=== PATIENT | female | born 2000 | race Two or more races ===

== ENCOUNTER 2022-08-06 20:13 | Emergency (ER) | payer OTHER ==
[~2022-08-06] VITALS: Ht 160 cm; Wt 49.9 kg
== END 2022-08-07 06:06 | disposition home or self-care (01) ==
LOC: ER 20:13
DX: O21.1 Hyperemesis gravidarum with metabolic disturbance (principal); Z3A.09 9 weeks gestation of pregnancy

== ENCOUNTER 2022-08-30 23:19 | Emergency (ER) | payer OTHER ==
[~2022-08-30] VITALS: Ht 160 cm; Wt 49.9 kg
[2022-08-30] MEDS ORDERED: PRENA1 TRUE CO1 EACH PO (23:34)
[2022-08-31] MEDS ORDERED: CEPHALEXIN500 MG PO (04:55)
== END 2022-08-31 05:01 ==
LOC: ER 23:19
DX: N39.0 Urinary tract infection, site not specified (principal); R50.9 Fever, unspecified; R53.81 Other malaise; Z3A.13 13 weeks gestation of pregnancy; Z20.822 Contact with and (suspected) exposure to COVID-19

== ENCOUNTER 2022-09-10 20:00 | Emergency (ER) | payer OTHER ==
[~2022-09-10] VITALS: Ht 160 cm; Wt 49.9 kg
[~2022-09-10 20:00] MED LIST: CEPHALEXIN500 MG PO; PRENA1 TRUE CO1 EACH PO
== END 2022-09-10 22:51 | disposition home or self-care (01) ==
LOC: ER 20:00
DX: R30.0 Dysuria (principal); Z3A.14 14 weeks gestation of pregnancy

== ENCOUNTER 2022-10-15 13:33 | Emergency (ER) | payer OTHER ==
[~2022-10-15] VITALS: Ht 160 cm; Wt 53.5 kg
== END 2022-10-15 14:27 | disposition home or self-care (01) ==
LOC: ER 13:33
DX: J06.9 Acute upper respiratory infection, unspecified (principal); R05.9 Cough, unspecified; Z3A.14 14 weeks gestation of pregnancy

== ENCOUNTER 2023-01-22 07:56 | Outpatient (CLI) | payer OTHER ==
[2023-01-22 09:04] LABS: HEMATOCRIT 30.1 % (36.0-45.00); HEMOGLOBIN 10.3 g/dL (12.0-15.00); MEAN CELL VOLUME 84.8 fL (80.00-100.00); MEAN CORPUSCULAR HGB CONC 34.2 g/dl (32.0-36.0); PLATELET COUNT 266 K/uL (150-450); RED BLOOD COUNT 3.55 M/uL (4.00-6.00); RED CELL DISTRIBUTION WIDTH 14.4 % (11.5-14.5)
[2023-01-22 09:33] LABS: ALBUMIN 2.6 gm/dL (3.4-5.0); BILIRUBIN TOTAL 0.3 mg/dL (0.3-1.2); CALCIUM 8.5 mg/dL (8.5-10.1); CREATININE SERUM 0.4 mg/dL (0.55-1.02); GFR 199.59; GLOBULINA 3.6 G/DL (2.4-3.5); POTASSIUM 4.21 mEq/L (3.5-5.1); TOTAL PROTEIN 6.2 gm/dL (6.4-8.2)
[2023-01-22 09:35] LABS: PH,URINE 5.5 (5.0-8.0); URINE APPEARANCE Clear; URINE BILIRRUBIN Negative (NEGATIVE); URINE BLOOD Negative; URINE COLOR Dark Yellow; URINE GLUCOSE Negative (NEGATIVE); URINE LEUKOCYTE Moderate; URINE NITRATE Negative; URINE PROTEIN Negative (NEGATIVE)
[2023-01-22 09:40] LABS: URINE RBC 4.7 uL (0.0-20.8); URINE WBC 118.8 uL (0.0-23.2)
[2023-01-22 10:13] LABS: URINE CRYSTALS FEW /HPF; URINE MUCUS SCANT; URINE YEAST FEW /hpf
[2023-01-23] MEDS ORDERED: CEFUROXIME500 MG PO (08:49)
== END 2023-01-23 09:53 | disposition home or self-care (01) ==
LOC: OBS/DEL 07:56
PROVIDERS: ATTEND Specialist
DX: O23.43 Unspecified infection of urinary tract in pregnancy, third trimester (principal); N39.0 Urinary tract infection, site not specified; Z3A.34 34 weeks gestation of pregnancy

== ENCOUNTER 2023-02-19 13:30 | Inpatient (IN) | payer OTHER ==
[~2023-02-19] VITALS: Ht 157.5 cm; Wt 2.7 kg
[~2023-02-19 13:30] MED LIST changes: +CEFUROXIME500 MG PO
[2023-03-04 06:29] LABS: HEMATOCRIT 30.4 % (36.0-45.00); HEMOGLOBIN 10.3 g/dL (12.0-15.00); MEAN CELL VOLUME 77.9 fL (80.00-100.00); MEAN CORPUSCULAR HEMOGLOBIN 26.3 pg (27.00-32.0); MEAN CORPUSCULAR HGB CONC 33.7 g/dl (32.0-36.0); PLATELET COUNT 236 K/uL (150-450); RED BLOOD COUNT 3.91 M/uL (4.00-6.00); RED CELL DISTRIBUTION WIDTH 15.8 % (11.5-14.5)
[2023-03-04 06:57] LABS: INR 0.95; PARTIAL THROMBOPLASTIN TIME 26.6 SECONDS (22.0-34.0)
[2023-03-04 07:03] LABS: PH,URINE 5.5 (5.0-8.0); URINE APPEARANCE Cloudy; URINE BILIRRUBIN Negative (NEGATIVE); URINE BLOOD Trace; URINE COLOR Yellow; URINE GLUCOSE Negative (NEGATIVE); URINE LEUKOCYTE Large; URINE NITRATE Negative; URINE PROTEIN Negative (NEGATIVE); URINE UROBILINOGEN 0.2 E.U./dl
[2023-03-04 07:04] LABS: URINE BACTERIA 4782.9 uL (0.0-1933); URINE EPITHELIAL CELLS 127.7 uL (0.0-38.8); URINE WBC 82.5 uL (0.0-23.2)
[2023-03-04 07:24] LABS: ALBUMIN 2.6 gm/dL (3.4-5.0); BILIRUBIN TOTAL 0.22 mg/dL (0.3-1.2); CALCIUM 8.9 mg/dL (8.5-10.1); CREATININE SERUM 0.38 mg/dL (0.55-1.02); GFR 211.77; GLOBULINA 3.5 G/DL (2.4-3.5); POTASSIUM 3.72 mEq/L (3.5-5.1); TOTAL PROTEIN 6.1 gm/dL (6.4-8.2)
[2023-03-04 07:40] LABS: URINE RBC 0.2 uL (0.0-20.8); URINE YEAST MODERATE /hpf
[2023-03-04 07:41] LABS: URINE EPITHELIAL CELLS 0-4 /HPF
[2023-03-05 01:55] LABS: HEMATOCRIT 27.6 % (36.0-45.00); MEAN CELL VOLUME 79.1 fL (80.00-100.00); MEAN CORPUSCULAR HGB CONC 33.4 g/dl (32.0-36.0); PLATELET COUNT 228 K/uL (150-450); RED BLOOD COUNT 3.49 M/uL (4.00-6.00); RED CELL DISTRIBUTION WIDTH 15.9 % (11.5-14.5)
[2023-03-05 01:58] LABS: HEMOGLOBIN 9.2 g/dL (12.0-15.00); MEAN CORPUSCULAR HEMOGLOBIN 26.3 pg (27.00-32.0)
== END 2023-03-07 13:52 | disposition home or self-care (01) | DRG 788 ==
LOC: LDR 03-04 05:53 → OB/GYN 03-04 05:53 → O/R 03-04 12:05 → OB/GYN 03-04 13:46 → LDR 03-06 14:30 → OB/GYN 03-07 13:52
PROVIDERS: ADMIT Specialist; ATTEND Specialist
PROC: 4A1HXCZ Monitoring of Products of Conception, Cardiac Rate, External Approach (ICD-10-PCS; 2023-03-04)
PROC: 10D00Z1 Extraction of Products of Conception, Low, Open Approach (ICD-10-PCS; principal; 2023-03-04 10:00)
DX: O62.0 Primary inadequate contractions (principal); Z3A.39 39 weeks gestation of pregnancy; Z37.0 Single live birth; Z20.822 Contact with and (suspected) exposure to COVID-19